=== PATIENT | male | born 1945 | race Two or more races ===

== ENCOUNTER 2021-12-22 08:50 | Outpatient (CLI) | payer MEDICARE, BC ==
[2021-12-26] MEDS ORDERED: CLOP75TA15 PO (08:19)
[2021-12-26] MEDS ORDERED: Hydrocodone/Apap 5/325MG PO (08:19)
[2021-12-26] MEDS ORDERED: ASPI-1169 PO (08:19)
== END 2021-12-22 23:59 | disposition home or self-care (01) ==
LOC: LAB 08:50
PROVIDERS: ATTEND Surgery Vascular Surgery
DX: Z01.812 Encounter for preprocedural laboratory examination (principal); Z20.822 Contact with and (suspected) exposure to COVID-19
CPT/HCPCS: U0003; C9803

== ENCOUNTER 2021-12-25 06:49 | Inpatient (IN) | payer MEDICARE, BC ==
[2021-12-25] VITALS (17 sets, daily range): BP systolic 96–122; BP diastolic 34–59
[~2021-12-25] VITALS: Ht 172.7 cm; Wt 84.4 kg
[2021-12-25] MEDS ORDERED: HEPARIN SODIUM, PORCINE 1,000 UNIT/ML VIAL ONE (07:54)
[2021-12-25] MEDS ORDERED: LIDOCAINE HCL/MPF 1% 30 ML VIAL IJ ONE (07:54)
--- NOTE | 2021-12-25 08:00 | NUR ---
GLUE DRIER OPERATOR NOTES RECEIVED PATIENT DIRECT ADMIT FROM HOME FOR SURGERY OF LEFT CAROTID ENDATERECTOMY , CAME IN VIA PRIVATE CAR , AMBULATORY , A/O X 4 VERBALLY RESPONSIVE AND ABLE TO MAKE NEEDS KNOWN , CONSENT SIGNED FOR SURGERY , BLOOD TRANSFUSION AND FOR ANESTHESIA , V/S TAKEN AND RECORDED , PRE OP LIST DONE AND IV ACCESS STARTED ON THE RAC G#18 , PATENT AND INTACT , KEPT COMFORTABLE TO BED AND ASSESSMENT DONE AND NO SKIN BREAKDOWN NOTED , AND ALL BELONGINGS WERE LISTED UPON ARRIVAL AND FORM WAS SIGNED , NO C/O OF PAIN AND DISCOMFORT , NO SOB OR DISTRESS NOTED AND ON ROOM AIR AND TOLERATED WELL . INSTRUCTED TO BE ON NPO AT THIS TIME AND SURGERY INFORMED ABOUT THE PATIENT , WAITING TO BE PICKED UP , ALL NEEDS ATTENDED
[2021-12-25] MEDS ORDERED: NITROGLYCERIN PACKET 1 GM PACKET ONE ×2 (08:05→08:06)
[2021-12-25] MEDS ORDERED: NITROGLYCERIN 0.4 MG/TAB BOTTLE ONE (08:07)
[2021-12-25] MEDS ORDERED: NTG 50 MG/D5W250 ML BOTTL 250 ML IV PRN (08:30)
[2021-12-25] MEDS ORDERED: ATOR10TA PO (08:53)
[2021-12-25] MEDS ORDERED: LOSA50TA39 PO (08:53)
[2021-12-25] MEDS ORDERED: METF-881 PO (08:53)
[2021-12-25] MEDS ORDERED: NEBI10TA2 PO (08:53)
[2021-12-25] MEDS ORDERED: TERA5CAP4 PO (08:53)
[2021-12-25 09:01] LABS: BASOPHILS % (AUTO) 0.3 % (0.0-2.0); EOSINOPHILS % (AUTO) 0.4 % (0.0-6.0); HEMATOCRIT 43 % (39-51); HEMOGLOBIN 14.2 g/dL (13.5-17.5); LYMPHOCYTES # (AUTO) 1.2 K/uL (0.8-4.8); MEAN CORPUSCULAR HGB CONC 33 g/dl (31.0-36.0); MEAN CORPUSCULAR VOLUME 94 fL (80-96); MONOCYTES # (AUTO) 0.5 K/uL (0.1-1.30); MONOCYTES % (AUTO) 5.5 % (2.0-12.0); NEUTROPHILS # (AUTO) 7.1 K/uL (1.8-8.9); NEUTROPHILS % (AUTO) 80.8 % (43.0-81.0); PLATELET COUNT (AUTO) 197 K/uL (150-450); RED BLOOD CELL COUNT(AUTO) 4.55 MIL/uL (4.5-6.0); WHITE BLOOD COUNT (AUTO) 8.8 K/uL (4.3-11.0)
[2021-12-25 09:15] LABS: CALCIUM, SERUM 9.4 mg/dL (8.5-10.1); CREATININE 1.3 mg/dL (0.6-1.3); POTASSIUM 4.9 mmol/L (3.5-5.1)
--- NOTE | 2021-12-25 09:30 | NUR ---
RN NOTES PATIENT WAS PICKED BY SURGERY STAFF AND ENDORSEMENT PROVIDED , ALL BELONGINGS WERE GIVEN TO THE
[2021-12-25] MEDS ORDERED: HYDROMORPHONE INJ 2 MG/ML DISP.SYRIN ONE (10:45)
[2021-12-25] MEDS ORDERED: ROCURONIUM BROMIDE 50 MG/5 ML ONE ×2 (10:46→12:17)
[2021-12-25] MEDS ORDERED: HEMOSTATIC MATRIX 8 ML 1 EACH PAD MC ONE (11:20)
[2021-12-25] MEDS ORDERED: POLYMYXIN B SULFATE 500,000 UNITS ONE (12:23)
[2021-12-25] MEDS ORDERED: CELLULOSE,OXIDIZED 1 EA PACK MC ONE (12:33)
[2021-12-25] MEDS ORDERED: CELLULOSE,OXIDIZED 1 PKT EACH MC ONE (12:33)
[2021-12-25] MEDS ORDERED: protAMINE SULFATE 10 MG/ML VIAL IV ONE (12:56)
[2021-12-25 14:29] LABS: BASOPHILS % (AUTO) 0.2 % (0.0-2.0); EOSINOPHILS % (AUTO) 0.2 % (0.0-6.0); HEMATOCRIT 39 % (39-51); LYMPHOCYTES # (AUTO) 1.1 K/uL (0.8-4.8); LYMPHOCYTES % (AUTO) 10.6 % (20.0-44.0); MEAN CORPUSCULAR HGB CONC 34 g/dl (31.0-36.0); MEAN CORPUSCULAR VOLUME 94 fL (80-96); MONOCYTES # (AUTO) 0.2 K/uL (0.1-1.30); MONOCYTES % (AUTO) 1.9 % (2.0-12.0); NEUTROPHILS # (AUTO) 9.1 K/uL (1.8-8.9); NEUTROPHILS % (AUTO) 87.1 % (43.0-81.0); PLATELET COUNT (AUTO) 186 K/uL (150-450); RED BLOOD CELL COUNT(AUTO) 4.15 MIL/uL (4.5-6.0); WHITE BLOOD COUNT (AUTO) 10.5 K/uL (4.3-11.0)
[2021-12-25] MEDS ORDERED: MORPHINE SULFATE INJ 2 MG/ML DISP.SYRIN IV PRN (14:30)
[2021-12-25] MEDS ORDERED: CLONIDINE HCL 0.1 MG TABLET PO PRN (14:30)
[2021-12-25] MEDS ORDERED: ACETAMINOPHEN 325 MG TABLET PO PRN ×2 (14:30→15:30)
[2021-12-25] MEDS ORDERED: HYDROCODONE/APAP 5/325MG TABLET PO PRN (14:30)
--- NOTE | 2021-12-25 14:40 | NUR ---
RN NOTES RECEIVED PT FROM PACU, A/Ox4, ON 2L O2 N/C , RESPIRATION EVEN AND UNLABORED , DRESSING TO LEFT NECK , CDI, ,YOCASTA DRAIN INTACT WITH SMALL AMOUNT OF BLOODY DRAINAGE, PT GLADYS ANY PAIN AT THIS TIME , LEFT RADIAL A-LINE SITE CDI, SR UP X3, CALL LIGHT WITHIN EASY REACH, BED LOCKED AND IN LOWEST POSITION, CONTINUE TO MONITOR
[2021-12-25] MEDS ORDERED: NICARDIPINE IN DEXTROSE,ISO-OS 200 ML IV PRN (15:00)
[2021-12-25] MEDS: IV NS 0.9% 1,000 ML IV PRN ×2 (15:02→21:00)
[2021-12-25] MEDS: DEXAMETHASONE SOD PHOSPHATE 4 MG/ML VIAL IV SCH ×2 (15:02→20:59)
[2021-12-25] MEDS ORDERED: Z GUARD REMEDY 4 OZ OINT TP PRN (15:30)
[2021-12-25] MEDS ORDERED: MAGNESIUM HYDROXIDE 30 ML UDC PO PRN (15:30)
[2021-12-25] MEDS ORDERED: IV NS 0.9% 1,000 ML IV PRN (15:30)
[2021-12-25] MEDS ORDERED: MAG HYDROX/AL HYDROX/SIMETH 30 ML UDC PO PRN (15:30)
[2021-12-25] MEDS ORDERED: ONDANSETRON HCL/PF 4 MG/2 ML VIAL IVP PRN (15:30)
[2021-12-25] MEDS ORDERED: ZOLPIDEM TARTRATE 5 MG TABLET PO PRN (15:30)
[2021-12-25 16:18] LABS: CALCIUM, SERUM 8.3 mg/dL (8.5-10.1)
[2021-12-25] MEDS: METFORMIN XR 500 MG TAB.SR.24H PO SCH (17:52)
[2021-12-25] MEDS ORDERED: ANCEF 1 GM/50 ML D5W IV SCH ×2 (18:00)
--- NOTE | 2021-12-25 18:00 | NUR ---
RN NOTES PT STABLE, NO DISTESS NOTED, DRESSING TO LEFT NECK CDI, PT AWAKE, PT VOIDED SMALL AMOUNT OF URNE. STATED FEELS OK AT THIS TIME, BLADDER SOFT TO TOUCH, YOCASTA DRAIN TO LEFT NECK INTACT , VSS STABLE , WILL ENDORSE TO FACILITY ATTENDANT NURSE FOR CONTINUITY OF CARE
--- NOTE | 2021-12-25 19:30 | NUR ---
ICU/CUSTOMER SERVICE ASSISTANT RECIEVED REPORT FROM DAY. SEE FLOWSHEET FOR ASSESSMENT. PT HAS LEFT J/P DRAINING. DRESSING TO LEFT NECK IS DRY AND INTACT. PT DENIES PAIN. CALL LIGHT WITHIN REACH.
[2021-12-25] MEDS: ANCEF 1 GM/50 ML D5W IV SCH ×2 (20:34)
[2021-12-25] MEDS: METOPROLOL TARTRATE 50 MG TABLET PO SCH (21:43)
[2021-12-25] MEDS ORDERED: TERAZOSIN HCL 5 MG CAPSULE PO SCH (22:00)
[2021-12-25] MEDS ORDERED: ATORVASTATIN 10 MG TABLET PO SCH (22:00)
--- NOTE | 2021-12-25 23:00 | NUR ---
ICU/INVENTORY CONTROL ANALYST PT REQUESTED TO HAVE A SLEEPING PILL, AMBIEN 5 MG GIVEN FOR THIS. CALL LIGHT WITHIN REACH, PT DENIES PAIN.
[2021-12-26] VITALS (10 sets, daily range): BP systolic 100–135; BP diastolic 42–53
--- NOTE | 2021-12-26 02:30 | NUR ---
ICU/CUT OFF SAW OPERATOR METAL PT IS ASLEEP, NO ACUTE DISTRESS SEEN AT THIS TIME. CALL LIGHT WITHIN REACH.
[2021-12-26] MEDS: ANCEF 1 GM/50 ML D5W IV SCH ×2 (03:22)
[2021-12-26] MEDS: DEXAMETHASONE SOD PHOSPHATE 4 MG/ML VIAL IV SCH (03:22)
--- NOTE | 2021-12-26 06:00 | NUR ---
ICU/MASTER SHEET CLERK AM LABS WERE DONE, AWAIT FOR ANY ABNORMAL RESULTS
[2021-12-26 06:20] LABS: BASOPHILS % (AUTO) 0.1 % (0.0-2.0); HEMATOCRIT 36 % (39-51); HEMOGLOBIN 12.1 g/dL (13.5-17.5); LYMPHOCYTES # (AUTO) 0.8 K/uL (0.8-4.8); LYMPHOCYTES % (AUTO) 5.9 % (20.0-44.0); MEAN CORPUSCULAR HGB CONC 33 g/dl (31.0-36.0); MEAN CORPUSCULAR VOLUME 94 fL (80-96); MONOCYTES # (AUTO) 0.4 K/uL (0.1-1.30); MONOCYTES % (AUTO) 3.2 % (2.0-12.0); NEUTROPHILS # (AUTO) 12.2 K/uL (1.8-8.9); NEUTROPHILS % (AUTO) 90.8 % (43.0-81.0); PLATELET COUNT (AUTO) 186 K/uL (150-450); RED BLOOD CELL COUNT(AUTO) 3.87 MIL/uL (4.5-6.0); WHITE BLOOD COUNT (AUTO) 13.5 K/uL (4.3-11.0)
[2021-12-26 07:00] LABS: HEMATOCRIT 36 % (39-51); HEMOGLOBIN 12.1 g/dL (13.5-17.5); LYMPHOCYTES # (AUTO) 0.8 K/uL (0.8-4.8); LYMPHOCYTES % (AUTO) 6.3 % (20.0-44.0); MEAN CORPUSCULAR HGB CONC 34 g/dl (31.0-36.0); MEAN CORPUSCULAR VOLUME 94 fL (80-96); MONOCYTES # (AUTO) 0.4 K/uL (0.1-1.30); MONOCYTES % (AUTO) 2.8 % (2.0-12.0); NEUTROPHILS # (AUTO) 11.8 K/uL (1.8-8.9); NEUTROPHILS % (AUTO) 90.9 % (43.0-81.0); PLATELET COUNT (AUTO) 182 K/uL (150-450); RED BLOOD CELL COUNT(AUTO) 3.83 MIL/uL (4.5-6.0)
[2021-12-26 07:12] LABS: CALCIUM, SERUM 8.6 mg/dL (8.5-10.1); CARBON DIOXIDE 25 mmol/L (21-32); CHLORIDE 106 mmol/L (98-107); GLUCOSE 166 mg/dL (74-106); MAGNESIUM 1.8 mg/dL (1.8-2.4); PHOSPHORUS 4.1 mg/dL (2.5-4.9); POTASSIUM 4.2 mmol/L (3.5-5.1); SODIUM SERUM 139 mmol/L (136-145); UREA NITROGEN, BLOOD 20 mg/dL (7-18)
--- NOTE | 2021-12-26 07:30 | NUR ---
OPENING NOTE: REPORT RECEIVED FROM KIN LATIF. ORDERS AND LABS REVIEWED DURING REPORT. PER REPORT DR REYNA ORDERED THAT PATIENT BE DISCHARGED TODAY, ART LINE REMOVED. RN EXPLAINED TO PATIENT THAT THE PRIMARY MD WILL HAVE TO PUT IN DISCHARGE ORDERS. RN WILL KEEP PATIENT UPDATED. PT CHECKED ON HOURLY AND PRN BY NURSING STAFF.
[2021-12-26] MEDS: METOPROLOL TARTRATE 50 MG TABLET PO SCH (08:17)
[2021-12-26] MEDS: METFORMIN XR 500 MG TAB.SR.24H PO SCH (08:17)
[2021-12-26] MEDS ORDERED: CLOP75TA15 PO (08:19)
[2021-12-26] MEDS ORDERED: ASPI-1169 PO (08:19)
[2021-12-26] MEDS ORDERED: Hydrocodone/Apap 5/325MG PO (08:19)
--- NOTE | 2021-12-26 08:19 | NUR ---
LOPRESSER HELD AT THIS TIME FOR HEART RATE OF 56. ART LINE REMOVED WITHOUT DIFFICULTY AT THIS TIME PER MD ORDERS
[2021-12-26] MEDS ORDERED: CLOPIDOGREL BISULFATE 75 MG TABLET PO SCH (09:00)
[2021-12-26] MEDS ORDERED: ENOXAPARIN SODIUM 40 MG/0.4 ML DISP.SYRIN SQ SCH (09:00)
[2021-12-26] MEDS ORDERED: ASPIRIN 81 MG TAB.CHEW PO SCH (09:00)
--- NOTE | 2021-12-26 10:47 | NUR ---
PT DISCHARGED AT 1024 VIA WHEELCHAIR, RN ACCOMPANIED PT TO LOBBY. PT'S PULLED UP CAR. RN HELPED PATIENT INTO THE CAR. ALL DISCHARGE PAPERWORK, PRESCRIPTION AND PERSONAL BELONINGS WITH PATIENT. LEFT WRIST A-LINE REMOVED, RIGHT AC AND RIGHT WRIST IV SITES REMOVED PRIOR TO DISCHARGE.
== END 2021-12-26 10:51 | disposition home or self-care (01) | DRG 39 ==
LOC: DS 06:49 → MED 06:57 → ICU 14:54
PROVIDERS: ADMIT Nurse Practitioner Acute Care; ATTEND Internal Medicine
PROC: 03CJ0ZZ Extirpation of Matter from Left Common Carotid Artery, Open Approach (ICD-10-PCS; principal; 2021-12-25)
PROC: 03UL0JZ Supplement Left Internal Carotid Artery with Synthetic Substitute, Open Approach (ICD-10-PCS; 2021-12-25)
DX: I65.22 Occlusion and stenosis of left carotid artery (principal); Z20.822 Contact with and (suspected) exposure to COVID-19; E78.5 Hyperlipidemia, unspecified; I10 Essential (primary) hypertension; N40.0 Benign prostatic hyperplasia without lower urinary tract symptoms; R79.89 Other specified abnormal findings of blood chemistry; Z79.899 Other long term (current) drug therapy; Z79.84 Long term (current) use of oral hypoglycemic drugs
CPT/HCPCS: 36415; 71045-TC; 80048-TC; 82962-TC; 83735-TC; 84100-TC; 85025-TC; 85027-TC; 87081-TC; 94799-TC; A4216; A6209; C1769; C1781; G0378; J0330; J0690; J1100; J1170; J1644; J2370; J2405; J2704; J2720; J3490; J7030; J7060